=== PATIENT | male | born 1970 | race Caucasian/White ===

== ENCOUNTER 2016-06-04 23:28 | Emergency (ER) | payer MEDICAID ==
[2016-06-04 23:58] VITALS: RESP 16
[2016-06-04 23:59] VITALS: BP 127/82; PULSE 114; TEMP 98.2; O2SAT 93
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
== END 2016-06-05 02:15 | disposition home or self-care (01) ==
DX: T50.901A Poisoning by unspecified drugs, medicaments and biological substances, accidental (unintentional), initial encounter (principal)

== ENCOUNTER 2016-08-13 11:09 | Emergency (ER) | payer MEDICAID ==
[2016-08-13] MEDS ORDERED: NS 1,000 ML IV ONE (12:33)
[2016-08-13] MEDS ORDERED: FAMOTIDINE 20 MG/NACL 50 ML IV ONE (12:33)
[2016-08-13] MEDS ORDERED: PANTOPRAZOLE SODIUM 40 MG in NS 100 ML IV ONE (12:33)
--- NOTE | 2016-08-13 12:38 | EDPHY ---
H & P Smoking Status: Current every day smoker Time Seen by Provider: 08/13/16 12:00 HPI/ROS: CHIEF COMPLAINT: Vomiting, epigastric abdominal pain HISTORY OF PRESENT ILLNESS: 46-year-old male presents to the emergency department with multiple episodes of vomiting epigastric abdominal pain over last few days. He actually has not vomited over 24 hours although still continues to have pain and is feeling very hungry. He had an endoscopy a number of years ago and was told that he had erosive esophagitis. He typically takes Pepcid which helps to manage his symptoms. He was concerned because he noted that the emesis looked very dark coffee-ground like. No fevers or chills. No other chest pain or difficulty breathing. No back pain. No reported trauma. REVIEW OF SYSTEMS: Constitutional: No fever, no chills. Eyes: No double or blurry vision. ENT: No sore throat. Respiratory: No cough, no shortness of breath. Cardiac: No chest pain. Gastrointestinal: Vomiting and abdominal pain as above. No diarrhea. Genitourinary: No dysuria. Musculoskeletal: No neck or back pain. Skin: No rashes. Neurological: No headache. (Brianna Morfin) Past Medical/Surgical History: Erosive esophagitis, marijuana use, alcoholism, probable pyloric stenosis repair as an infant (Brianna Morfin) Social History: Currently homeless from [place] (Brianna Morfin) Physical Exam: General Appearance: Alert, no distress. 132/74, heart rate 90, 95% on room air. Smells strongly of marijuana. Eyes: Pupils equal and round. Extraocular motions are all intact. ENT: Mouth: Mucous membranes moist. Respiratory: No wheezing, rhonchi, or rales, lungs are clear to auscultation. Cardiovascular: Regular rate and rhythm. Gastrointestinal: Abdomen is soft. Tenderness with palpation in the epigastric area. There is no pain with palpation in the right or left upper quadrant. There is no rebound, guarding or masses noted. No CVA tenderness bilaterally. Neurological: Alert and oriented x 3, cranial nerves II through XII grossly intact Skin: Warm and dry, no rashes. Musculoskeletal: Nontender to palpate along the cervical, thoracic or lumbar spine. Neck is supple. Extremities: Full range of motion and no peripheral edema. Psychiatric: Patient is oriented X 3, there is no agitation. (Brianna Morfin) Constitutional: Initial Vital Signs Temperature (C) 37 C 08/13/16 11:14 Heart Rate 90 08/13/16 11:14 Respiratory Rate 18 08/13/16 11:14 Blood Pressure 132/74 H 08/13/16 11:14 O2 Sat (%) 95 08/13/16 11:14 O2 Delivery Mode Room Air Allergies/Adverse Reactions: No Known Allergies Allergy (Unverified 06/04/16 23:54) Home Medications: Medication Instructions Recorded Omeprazole [Prilosec 20 mg] 20 mg PO BID #20 capsule. 08/13/16 Medical Decision Making ED Course/Re-evaluation: An IV was established patient received IV normal saline, IV Protonix, and IV Pepcid. He was feeling much better. He was still however having pain with swallowing water. I spoke with the on-call data security coordinator, Dr. Devin Son. He recommended giving the patient GI cocktail. He felt the patient could be discharged and He feels much better after this and is able to eat some of his soup and drink some water. He has already arranged for a follow-up appointment with [facility] on Thursday, in 2 days. He was encouraged to use Prilosec twice daily he was given a prescription for this. He was also encouraged to use Maalox or Mylanta [id number]. He was instructed to return if he develops vomiting or if he felt worse in any way. I did explain to the patient that I could not exclude a stricture. I encouraged him to eat only soft foods. He will return if he develops vomiting or any other concerns. (Brianna Morfin) Differential Diagnosis: Including but not limited to GERD, peptic ulcer disease, cholecystitis, cholelithiasis, pancreatitis, GI bleed, gastritis (Brianna Morfin) Other Provider: The patient was evaluated and managed by the physician regulatory affairs assistant. I have reviewed this chart and I agree with the findings and plan of care as documented , as indicated by my signature. I am the secondary supervising physician. ( Bridgette Mccracken) - Data Points Laboratory Results: Laboratory Results 08/13/16 12:36 08/13/16 12:36 Medications Given: Discontinued Medications Al Hydroxide/Mg Hydroxide (Maalox Susp) 30 ml PO ONCE ONE Stop: 04/12/17 14:39 Last Admin: 08/13/16 14:47 Dose: 30 ml Hyoscyamine Sulfate (Levsin, Hyomax-Sl) 0.25 mg PO ONCE ONE Stop: 08/13/16 14:39 Last Admin: 08/13/16 14:47 Dose: 0.25 mg Famotidine/Sodium Chloride (Pepcid 20 Mg (Premix)) 50 mls @ 200 mls/hr IV EDNOW ONE Stop: 08/13/16 12:47 Last Admin: 08/13/16 12:50 Dose: 50 mls Sodium Chloride (Ns) 1,000 mls @ 0 mls/hr IV ONCE ONE PRN Reason: Wide Open Stop: 08/13/16 12:34 Last Admin: 08/13/16 12:50 Dose: 1,000 mls Pantoprazole Sodium 40 mg/ (Sodium Chloride) 100 mls @ 200 mls/hr IV EDNOW ONE Stop: 08/13/16 13:02 Last Admin: 08/13/16 13:05 Dose: 100 mls Lidocaine (Lidocaine 2% Viscous) 15 ml PO ONCE ONE Stop: 08/13/16 14:39 Last Admin: 08/13/16 14:47 Dose: 15 ml Departure - Departure Disposition: Home, Routine, Self-Care Clinical Impression: Epigastric abdominal pain, Esophagitis Condition: Good Instructions: Abdominal Pain (ED), Esophagitis (ED) Additional Instructions: Soft foods as discussed. Prilosec twice daily as directed for 1 week. Pepcid as directed [id number] Mylanta or Maalox as directed to help you with eating and drinking. Return to the emergency department if you develop vomiting, worsening abdominal pain, or if you feel worse in any way. Referrals: Devin Son MD [Medical Doctor] - 1-2 days without fail (Manual Lathe Machinist on-call Keep scheduled appointment for Thursday.) Prescriptions: Omeprazole [Prilosec 20 mg] 20 mg PO BID #20 capsule.
[2016-08-13 12:48] LABS: % IMMATURE GRANULYOCYTES 0.2 % (0.0-1.1); ABSOLUTE IMMATURE GRANULOCYTES 0.02 10^3/uL (0.00-0.10); ADD DIFF? NO; ADD MORPH? NO; ADD SCAN? NO; ATYPICAL LYMPHOCYTE FLAG 0 (0-99); FRAGMENT RBC FLAG 20 (0-99); HEMATOCRIT 40.1 % (40.0-51.0); HEMOGLOBIN 13.6 g/dL (13.7-17.5); LEFT SHIFT FLG 10 (0-99); LIPEMIA HEMOLYSIS FLAG 90 (0-99); MEAN CELL HEMOGLOBIN 31.3 pg (27.9-34.1); MEAN CELL HEMOGLOBIN CONCENTR. 33.9 g/dL (32.4-36.7); MEAN CELL VOLUME 92.4 fL (81.5-99.8); PLATELET CLUMPS FLAG 10 (0-99); PLATELET COUNT 246 10^3/uL (150-400); RED BLOOD CELL COUNT 4.34 10^6/uL (4.40-6.38); RED CELL DISTRIBUTION WIDTH 12.6 % (11.5-15.2)
[2016-08-13 13:07] LABS: ALANINE AMINOTRANSFERASE 64 IU/L (21-72); ALBUMIN 3.4 g/dL (3.5-5.0); ALKALINE PHOSPHATASE 49 IU/L (38-126); ANION GAP 9 mEq/L (8-16); ASPARTATE AMINOTRANSFERASE 37 IU/L (17-59); BILIRUBIN,TOTAL 0.6 mg/dL (0.1-1.4); BILIRUBIN-CONJUGATED 0.3 mg/dL (0.0-0.5); BILIRUBIN-UNCONJUGATED 0.3 mg/dL (0.0-1.1); CALCIUM 9.2 mg/dL (8.5-10.4); CARBON DIOXIDE 32 mEq/l (22-31); CHLORIDE 97 mEq/L (97-110); CREATININE 0.8 mg/dL (0.7-1.3); GLOMERULAR FILTRATION RATE > 60; GLUCOSE 88 mg/dL (70-100); POTASSIUM 3.4 mEq/L (3.5-5.2); SODIUM 138 mEq/L (134-144); TOTAL PROTEIN 5.9 g/dL (6.3-8.2)
[2016-08-13] MEDS ORDERED: MAG HYDROX/AL HYDROX/SIMETH 30 ML UDCUP PO ONE (14:38)
[2016-08-13] MEDS ORDERED: LIDOCAINE 2% VISCOUS 15 ML UDCUP PO ONE (14:38)
[2016-08-13] MEDS ORDERED: HYOSCYAMINE SULFATE 0.125 MG TAB PO ONE (14:38)
[2016-08-13 14:47] VITALS: BP 140/86; PULSE 76; RESP 16; TEMP 99; O2SAT 96
== END 2016-08-13 16:41 | disposition home or self-care (01) ==
DX: K20.9 Esophagitis, unspecified (principal); F17.200 Nicotine dependence, unspecified, uncomplicated
CPT/HCPCS: 96365

== ENCOUNTER → 2016-08-15 | Day surgery (SDC) | payer MEDICAID ==
[~2016-08-15] MED LIST: LIDOCAINE 2% 5 ML SDV ONE; LR 1,000 ML IV ONE; MIDAZOLAM 2 MG/2 ML VIAL ONE; ONDANSETRON 4 MG/2 ML VIAL ONE; PROPOFOL 200 MG/20 ML VIAL ONE; fentaNYL 100 MCG/2 ML INJ ONE
--- NOTE | 2016-08-15 11:18 | GPN ---
[f rep st] PROCEDURE NOTE PROCEDURE: Upper endoscopy. INDICATION: Nausea, vomiting, chest pain, abdominal pain, and hematemesis. COMPLICATIONS: None acutely. MEDICATIONS: Anesthesia services were consulted related to this patient's sedation given his high l ikelihood of poor tolerance to conscious sedation in the setting of recent alcohol use and history o f polysubstance abuse. COMPLICATIONS: None acutely. DESCRIPTION OF PROCEDURE: After informed consent was obtained, the patient was placed in the left l ateral decubitus position and the forward viewing upper endoscope was advanced through the mouth int o the proximal duodenum. Retroflex views in the gastric cardia were obtained. FINDINGS: 1. Severe esophagitis was noted through the distal 2/3 of the esophagus. This had a white and exud ative appearance consistent with severe erosive esophagitis from reflux. The differential diagnosis could also include bacterial or fungal infection. Less likely, viral cytopathic infection. 2. Mild to moderate gastritis was visualized throughout the stomach. 3. Normal duodenum. 4. Biopsies of the esophagitis, gastritis, and duodenum were obtained for pathology. IMPRESSION AND PLAN: I suspect that the patient's symptoms are related to severe erosive esophagiti s in the setting of recurrent emesis during a recent alcohol binge. The differential diagnosis is b road and biopsies may help resolve this. I recommend alcohol cessation, daily proton pump inhibitor , and as needed topical therapy such as viscous lidocaine if necessary. My office will call him wit h the results of his pathology. I recommend that he follow up with his primary care physician if sy mptoms recur, and we could consider additional workup if needed. /[id number]/MODL
== END | disposition home or self-care (01) ==
LOC: FSGY 07:43
PROVIDERS: ATTEND Internal Medicine Gastroenterology
PROC: 0DB98ZX Excision of Duodenum, Via Natural or Artificial Opening Endoscopic, Diagnostic (ICD-10-PCS; principal; 2016-08-15 09:00)
PROC: 0DB58ZX Excision of Esophagus, Via Natural or Artificial Opening Endoscopic, Diagnostic (ICD-10-PCS; principal; 2016-08-15 09:00)
PROC: 0DB68ZX Excision of Stomach, Via Natural or Artificial Opening Endoscopic, Diagnostic (ICD-10-PCS; principal; 2016-08-15 09:00)
DX: K21.0 Gastro-esophageal reflux disease with esophagitis (principal); K29.70 Gastritis, unspecified, without bleeding
CPT/HCPCS: J2250; J2405; J2704; J3010

== ENCOUNTER 2016-10-20 20:16 | Emergency (ER) | payer OTHER, MEDICAID ==
[2016-10-20 20:47] VITALS: RESP 18
[2016-10-20] MEDS ORDERED: chlordiazePOXIDE 25 MG CAP PO ONE (21:07)
[2016-10-20] MEDS ORDERED: NS 1,000 ML IV ONE (21:07)
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
[2016-10-20 22:31] VITALS: BP 103/73; PULSE 93; TEMP 99.1; O2SAT 95
== END 2016-10-20 22:56 | disposition home or self-care (01) ==
DX: S20.219A Contusion of unspecified front wall of thorax, initial encounter (principal); F10.230 Alcohol dependence with withdrawal, uncomplicated; J45.909 Unspecified asthma, uncomplicated; F17.200 Nicotine dependence, unspecified, uncomplicated; V43.52XA Car driver injured in collision with other type car in traffic accident, initial encounter; Y92.410 Unspecified street and highway as the place of occurrence of the external cause; Y99.8 Other external cause status; Y93.89 Activity, other specified

== ENCOUNTER 2016-12-03 01:53 | Emergency (ER) | payer MEDICAID ==
[2016-12-03 02:21] LABS: % IMMATURE GRANULYOCYTES 0.3 % (0.0-1.1); ABSOLUTE IMMATURE GRANULOCYTES 0.03 10^3/uL (0.00-0.10); ADD DIFF? NO; ADD MORPH? NO; ADD SCAN? NO; ATYPICAL LYMPHOCYTE FLAG 10 (0-99); FRAGMENT RBC FLAG 0 (0-99); HEMATOCRIT 40.3 % (40.0-51.0); HEMOGLOBIN 13.3 g/dL (13.7-17.5); LEFT SHIFT FLG 0 (0-99); LIPEMIA HEMOLYSIS FLAG 80 (0-99); MEAN CELL HEMOGLOBIN 31.1 pg (27.9-34.1); MEAN CELL VOLUME 94.4 fL (81.5-99.8); MEAN PLATELET VOLUME 9.5 fL (8.7-11.7); PLATELET CLUMPS FLAG 0 (0-99); PLATELET COUNT 331 10^3/uL (150-400); RED BLOOD CELL COUNT 4.27 10^6/uL (4.40-6.38); RED CELL DISTRIBUTION WIDTH 12.7 % (11.5-15.2)
[2016-12-03 02:28] LABS: ANION GAP 12 mEq/L (8-16); CALCIUM 9.6 mg/dL (8.5-10.4); CARBON DIOXIDE 22 mEq/l (22-31); CHLORIDE 109 mEq/L (97-110); CREATININE 0.9 mg/dL (0.7-1.3); ETHANOL SERUM 22 mg/dL (0-10); GLOMERULAR FILTRATION RATE > 60; GLUCOSE 99 mg/dL (70-100); POTASSIUM 3.8 mEq/L (3.5-5.2); SODIUM 143 mEq/L (134-144)
[2016-12-03 05:46] VITALS: O2SAT 98
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
[2016-12-03 13:01] VITALS: BP 124/86; PULSE 99; RESP 20; TEMP 98.1
== END 2016-12-03 13:01 | disposition home or self-care (01) ==
LOC: EDUNIT#
DX: F22 Delusional disorders (principal); F19.10 Other psychoactive substance abuse, uncomplicated; F17.200 Nicotine dependence, unspecified, uncomplicated
CPT/HCPCS: 80305; G0480